=== PATIENT | female | born 1990 | race African-American/Black ===

== ENCOUNTER 2016-07-31 17:02 | Emergency (ER) | payer MEDICARE, MEDICAID ==
[~2016-07-31 17:02] MED LIST: PRENATAL COMPLE1 TAB PO
[2016-07-31 17:31] LABS: BASOPHILS 0.2 % (0-2); EOSINOPHILS 1.2 % (0-7); HEMATOCRIT 41.6 % (36.0-48.0); HEMOGLOBIN 14.6 g/dL (12-16); IMMATURE GRANULOCYTES 0.3 % (0-5); LYMPHOCYTES 31.5 % (15-50); MCH 32.9 pg (26.0-34.0); MCHC 35.1 g/dL (31.0-37.0); MCV 93.7 fL (80.0-100.0); MEAN PLATELET VOLUME 9.3 fL (7.4-10.4); MONOCYTES 8.9 % (2-11); NEUTROPHILS 57.9 % (40-80); PLATELET COUNT 244 10x3/uL (130-400); RBC 4.44 10x6/uL (4.00-5.40); RDW 12.6 % (11.5-14.5); WBC 9.6 10x3/uL (4.8-10.8)
[2016-07-31 17:55] LABS: ALBUMIN 3.6 g/dL (3.4-5.0); ALKALINE PHOSPHATASE 103 U/L (46-116); ALT (SGPT) 27 U/L (10-68); CALC OSMOLALITY 278 mosm/kg (275-300); CARBON DIOXIDE 25.9 mmol/L (21.0-32.0); CHLORIDE - SERUM 104 mmol/L (98-107); CREATININE - SERUM 0.9 mg/dL (0.6-1.3); HCG SERUM NEGATIVE (NEGATIVE); POTASSIUM - SERUM 3.7 mmol/L (3.5-5.1); PROTEIN - SERUM 7.3 g/dL (6.4-8.2); SODIUM 140 mmol/L (136-145); UREA NITROGEN 11 mg/dL (7-18); eGFR NON AFRICAN AMERICAN 80 mL/min (90-120)
[2016-07-31 17:56] LABS: GLUCOSE 114 mg/dL (74-106)
[2016-07-31 18:03] LABS: APPEARANCE CLEAR (CLEAR); BILIRUBIN NEGATIVE (NEGATIVE); COLOR YELLOW (YELLOW); GLUCOSE NEGATIVE (NEGATIVE); KETONE NEGATIVE (NEGATIVE); LEUKOCYTE ESTERASE TRACE (NEGATIVE); NITRITE NEGATIVE (NEGATIVE); PROTEIN TRACE mg/dL (NEGATIVE); UROBILINOGEN NORMAL (NORMAL)
[2016-07-31 18:05] LABS: BACTERIA FEW /hpf (NONE SEEN); MUCUS <1+ /lpf (NONE SEEN); RED CELLS - URINE 0-5 /hpf (0-5); WHITE CELLS - URINE 0-5 /hpf (0-5)
[2016-07-31 18:08] LABS: UDS - AMPHET POSITIVE QUAL (NEGATIVE); UDS - BARB NEGATIVE QUAL (NEGATIVE); UDS - BENZO POSITIVE QUAL (NEGATIVE); UDS - COCAINE NEGATIVE QUAL (NEGATIVE); UDS - METH NEGATIVE QUAL (NEGATIVE); UDS - OPIATE NEGATIVE QUAL (NEGATIVE); UDS - PCP NEGATIVE QUAL (NEGATIVE); UDS - THC POSITIVE QUAL (NEGATIVE)
== END 2016-07-31 20:35 | disposition short-term general hospital (02) ==
LOC: D.ER 17:02
PROVIDERS: Emergency Medicine Emergency Medical Services
DX: F31.60 Bipolar disorder, current episode mixed, unspecified (principal); F19.10 Other psychoactive substance abuse, uncomplicated; F17.200 Nicotine dependence, unspecified, uncomplicated

== ENCOUNTER 2017-01-06 19:23 | Emergency (ER) | payer MEDICARE, MEDICAID ==
[2017-01-12 22:38] VITALS: BMI 23.4
== END 2017-01-06 20:57 | disposition home or self-care (01) ==
LOC: D.ER 19:23
DX: H60.12 Cellulitis of left external ear (principal); K21.9 Gastro-esophageal reflux disease without esophagitis

== ENCOUNTER 2017-01-12 13:07 | Day surgery (SDC) | payer MEDICARE, MEDICAID ==
[2017-01-12] VITALS (7 sets, daily range): BP systolic 102–137; BP diastolic 54–76; BMI 23.4
[2017-01-12 14:13] LABS: APPEARANCE CLEAR (CLEAR); BILIRUBIN NEGATIVE (NEGATIVE); COLOR YELLOW (YELLOW); GLUCOSE NEGATIVE (NEGATIVE); KETONE NEGATIVE (NEGATIVE); NITRITE NEGATIVE (NEGATIVE); PROTEIN NEGATIVE (NEGATIVE); UROBILINOGEN NORMAL (NORMAL)
[2017-01-12 14:14] LABS: BACTERIA MANY /hpf (NONE SEEN); MUCUS <1+ /lpf (NONE SEEN); RED CELLS - URINE 0-5 /hpf (0-5); WHITE CELLS - URINE RARE /hpf (0-5)
[2017-01-12 15:05] LABS: BASOPHILS 0.4 % (0-2); EOSINOPHILS 0.9 % (0-7); HEMATOCRIT 39.4 % (36.0-48.0); HEMOGLOBIN 13.5 g/dL (12-16); IMMATURE GRANULOCYTES 0.6 % (0-5); LYMPHOCYTES 35.6 % (15-50); MCH 32.8 pg (26.0-34.0); MCHC 34.3 g/dL (31.0-37.0); MCV 95.9 fL (80.0-100.0); MONOCYTES 11.4 % (2-11); NEUTROPHILS 51.1 % (40-80); PLATELET COUNT 293 10x3/uL (130-400); RBC 4.11 10x6/uL (4.00-5.40); RDW 12.8 % (11.5-14.5); WBC 11.2 10x3/uL (4.8-10.8)
[2017-01-12 15:10] LABS: HCG SERUM POSITIVE (NEGATIVE)
[2017-01-12 15:18] LABS: ALBUMIN 3.4 g/dL (3.4-5.0); ALKALINE PHOSPHATASE 87 U/L (46-116); ALT (SGPT) 31 U/L (10-68); BILIRUBIN - TOTAL 0.18 mg/dL (0.2-1.3); CALC OSMOLALITY 274 mosm/kg (275-300); CALCIUM 8.9 mg/dL (8.5-10.1); CARBON DIOXIDE 24.9 mmol/L (21.0-32.0); CHLORIDE - SERUM 104 mmol/L (98-107); CREATININE - SERUM 0.7 mg/dL (0.6-1.3); GLUCOSE 71 mg/dL (74-106); POTASSIUM - SERUM 4.3 mmol/L (3.5-5.1); PROTEIN - SERUM 7.4 g/dL (6.4-8.2); SODIUM 138 mmol/L (136-145); UREA NITROGEN 14 mg/dL (7-18); eGFR NON AFRICAN AMERICAN > 90 mL/min (90-120)
--- NOTE | 2017-01-12 20:14 | HP ---
PATIENT: LEON SALINAS MEDICAL RECORD: [id number] ACCOUNT: [id number] LOCATION:[facility] : 89 ADMISSION DATE: 01/12/17 HISTORY AND PHYSICAL EXAMINATION HISTORY OF PRESENT ILLNESS: This patient is a 26-year-old 2, para 1 female who presents to the Emergency Room with lower abdominal pain, especially in left lower quadrant and positive test. Ultrasound reveals a mass in the left adnexa and fluid in the abdomen consistent with ectopic . HCG level is 279. Her last known menstrual period was in November. DRUG ALLERGIES: PENICILLIN. CURRENT MEDICATIONS: None. MEDICAL PROBLEMS: Denies heart disease, diabetes, hypertension, kidney problems, thyroid problems. Does have a history of bipolar disorder and is currently on no medications for that. PREVIOUS SURGERIES: section. Her child is approximately 1-year-old. FAMILY HISTORY: Noncontributory. SOCIAL HISTORY: The patient smokes approximately half pack a day and has stopped since she found out she is . PHYSICAL EXAMINATION: VITAL SIGNS: Stable. HEENT: Unremarkable. LUNGS: Clear. HEART: Regular rate and rhythm. She does have a grade 2 murmur. ABDOMEN: Soft, without distention, tender throughout with guarding. PELVIC: Deferred for anesthesia. EXTREMITIES: No cyanosis, clubbing, or edema. NEUROLOGIC: Grossly intact. IMPRESSION: Probable ectopic and acute onset of abdominal pain and positive test without an intrauterine gestation. PLAN: I have discussed with the patient the need for laparoscopic evaluation with removal of ectopic is identified, discussed that more extensive surgery might be needed to stop bleeding or if complications occur. I answered all her questions. TRANSINT:[id number] Voice Confirmation ID: [id number] DOCUMENT ID: [id number] HISTORY AND PHYSICAL [id number] LEON SALINAS MICHELLE BRASHER MD at 2014 CC: [id number] DICTATION DATE: 01/12/171837 FORM BUILDER HELPER: 01/12/172002 [facility] [address] [place] [address]
--- NOTE | 2017-01-12 21:53 | NUR ---
REC'D PT TO ROOM 1257 FROM PACU ON STRETCHER WITH SECURITY COMPLIANCE SPECIALIST. BEDSIDE REPORT REC'D FROM Henrry SAAB RN. PT AWAKE, ALERT, AND ORIENTED X3, HOWEVER REPORTS THAT SHE "FEELS HIGH." PT GIGGLING AND LAUGHING AT THIS TIME. REPORTS ABD CRAMPING. PT TRANSFERRED TO BED WITH MINIMAL ASSIST. PER SECURITY COMPLIANCE SPECIALIST PT'S MOTHER WAS WITH HER AND WILL RETURN TO THE HOSPITAL AT A LATER TIME. VSS. NO BLEEDING NOTED AT THIS TIME. STERISTRIPS INTACT TO ABD. ABD SOFT AND NONDISTENDED. BREATH SOUNDS CLEAR AND EQUAL BILATERALLY, RESPIRATIONS REGULAR AND UNLABORED. PT ORIENTED TO ROOM, BED RAILS, CL USE, AND PHONE. ORDERS REVIEWED. PLAN OF CARE DISCUSSED WITH PT. DENIES QUESTIONS AT THIS TIME. BED IN LOW POSITION AT THIS TIME. UPPER SIDE RAILS RAISED X2. CL AND PHONE WITHIN REACH.
--- NOTE | 2017-01-12 22:17 | NUR ---
RN BACK TO BEDSIDE. SCHEDULED TORADOL GIVEN PER ORDER. PAIN 3/10 ABD CRAMPING AND SORENESS. D5LR INITIATED VIA PUMP AT 125 MLS/HR PER ORDER. MEDS DISCUSSED WITH PT, VERBALIZES UNDERSTANDING AND DENIES QUESTIONS. RN REMAINS AT BEDSIDE AT THIS TIME.
--- NOTE | 2017-01-12 22:38 | NUR ---
PT TALKING TO MOTHER ON PHONE. EATING ICE CHIPS. RN REMAINS AT BEDSIDE.
--- NOTE | 2017-01-12 22:50 | NUR ---
PAIN REASSESSMENT COMPLETED. DENIES PAIN AT THIS TIME. ABD REMAINS SOFT AND NONDISTENDED. DIME SIZED AREA BRB NOTED TO PERIPAD. RN REMAINS AT BEDSIDE WITH PT. PT CONTINUES TO TALK, GIGGLE AT TIMES, DIFFICULT TO FOLLOW D/T CHANGING TOPICS OF CONVERSTATION FREQUENTLY.
--- NOTE | 2017-01-12 23:06 | NUR ---
PT'S MOTHER BACK TO BEDSIDE. PLAN OF CARE REVIEWED WITH PT'S MOTHER PER PT'S REQUEST. DENIES QUESTIONS.
[2017-01-13 00:02] VITALS: BP 106/69
--- NOTE | 2017-01-13 00:02 | NUR ---
RN TO BEDSIDE FOR ROUNDS. PT IN SEMI FOWLERS POSITION CONVERSING WITH HER MOTHER. ICE WATER AND JELLO GIVEN. VSS. BLEEDING REMAINS SCANT. ABD REMAINS SOFT AND NONDISTENDED. PT DENIES PAIN AND NEED TO VOID. REINFORCED INSTRUCTION ON USE OF CL FOR ASSISTANCE OOB, VERBALIZES UNDERSTANDING. BED IN LOW POSITION WITH UPPER SIDE RAILS RAISED X2. CL AND PHONE WITHIN REACH.
[2017-01-13 01:12] VITALS: BP 129/65
--- NOTE | 2017-01-13 01:12 | NUR ---
RN TO BEDSIDE FOR ROUNDS. VSS. SCANT AMT BLEEDING PRESENT. ABD REMAINS NONDISTENDED. PT DENIES PAIN. UP TO VOID, VOIDS 100 MLS CLEAR LIGHT YELLOW URINE IN HAT. PERICARE DONE PER PT. DISPOSABLE PANTIES AND PERIPAD PROVIDED. PT CHANGED INTO HER OWN CLOTHES. STEADY GAIT NOTED. SODA GIVEN PER REQUEST. PT'S MOM REMAINS IN ROOM RESTING ON COUCH. BED IN LOW POSITION WITH UPPER SIDE RAILS RAISED X2. CL AND PHONE WITHIN REACH. REINFORCED USE OF CL PRN FOR ASSISTANCE. WILL CONT TO MONITOR AND ASSIST PRN.
[2017-01-13 02:23] VITALS: BP 106/54
--- NOTE | 2017-01-13 02:23 | NUR ---
RN TO BEDSIDE FOR ROUNDS. PT TALKING ON CELL PHONE. DENIES PAIN. VSS. DENIES NEEDS. REFUSES ICE PACK AT THIS TIME. PT'S MOTHER CONTINUES TO REST ON COUCH AT BEDSIDE. BED IN LOW POSITION WITH UPPER SIDE RAILS RAISED X2. CL AND PHONE WITHIN REACH. WILL CONT TO MONITOR AND ASSIST PRN.
[2017-01-13 03:18] VITALS: BP 117/54
--- NOTE | 2017-01-13 03:18 | NUR ---
RN TO BEDSIDE FOR ROUNDS. PT SITTING UP IN BED TALKING ON CELL PHONE. DENIES PAIN AND NEEDS AT THIS TIME. STATES THAT SHE VOIDED AGAIN WITHOUT DIFFICULTY BUT DID NOT MEASURE IT IN HAT. STATES THAT SHE HAS HAD NO MORE BLEEDING. ABD NONDISTENDED AND SOFT. BED IN LOW POSITION WITH UPPER SIDE RAILS RAISED X2. CL AND PHONE WITHIN REACH. CONTINUES TO REFUSE ICE PACK. WILL CONT TO MONITOR AND ASSIST PRN.
--- NOTE | 2017-01-13 04:27 | NUR ---
RN TO BEDSIDE FOR ROUNDS. PT CONTINUES TO TALKE ON CELL PHONE. SCANT BLEEDING NOTED. ABD REMAINS SOFT AND NONDISTENDED. REPORTS PAIN 2/10, ABD SORENESS AND OCCASIONAL CRAMPING. TORADOL GIVEN. ICE WATER GIVEN PER REQUEST. DENIES ADDITIONAL NEEDS. BED IN LOW POSITION WITH UPPER SIDE RAILS RAISED X2. CL AND PHONE WITHIN REACH. WILL CONT TO MONITOR AND ASSIST PRN.
--- NOTE | 2017-01-13 05:15 | NUR ---
ASSISTED PATIENT UP TO BATHROOM. PT VOIDED WITHOUT COMPLICATIONS. NO OTHER NEEDS IDENTIFIED, PT BACK TO BED.
--- NOTE | 2017-01-13 06:09 | NUR ---
IV FLUIDS COMPLETED AT THIS TIME. PT IV SALINE LOCKED.
[2017-01-13 08:30] VITALS: BP 102/84
--- NOTE | 2017-01-13 08:30 | NUR ---
ENTERED ROOM. PT HAS BEEN SEEN PER Vlad MORALES RN THIS AM. PT DENIES PAIN IS UP AND WALKING AROUND ROOM. PT STATES SHE IS READY AND HAS BEEN READY TO GO HOME. PT STATES SHE PULLED OUT HER SALINE LOCK ALREADY BECAUSE " I HEARD THEY WERE NOT SUPPOSE TO BE IN VERY LONG BECAUSE OF INFECTION" IV SITE APPEARANCE WNLJed WARD IS ON SITE. PT STATES THAT SHE WANTS TO GO SEE HER BOYFRIEND AT NURSING HOME AT 1100 AND WANTS TO BE DISCHARGED.
--- NOTE | 2017-01-13 09:11 | NUR ---
REPORT TO DR BRASHER ABOUT PT WANTING TO BE DISCHARGED- NEW ORDERS RECEIVED.
[2017-01-13] MEDS ORDERED: MEPERIDINE HCL50 MG PO (09:18)
[2017-01-13] MEDS ORDERED: IBUPROFEN800 MG PO (09:19)
--- NOTE | 2017-01-13 09:30 | NUR ---
RHOGAM IM GIVEN PER ORDER DR BRASHER.
--- NOTE | 2017-01-13 10:00 | NUR ---
DISCHARGE INST VERBAL AND WRITTEN GIVEN. PRESCRIPTIONS GIVEN- DEMEROL AND MOTRIN, PT MED REC AND DURG DATA INFO GIVEN. PT HEALTH SUMMARY GIVEN. SEE OTHER PT INST SIGNITURE PAGE. PT DENIES QUESTIONS.
--- NOTE | 2017-01-13 10:13 | NUR ---
PT AMBULATORY OFF UNIT PER REQUEST- PT MOTHER WITH HER. DISCHARGE TO HOME.
== END 2017-01-13 10:13 | disposition home or self-care (01) ==
LOC: D.ER 13:07 → D.OPS 13:07 → EDSTATUS 19:00 → D.LD 20:21 → D.OPS 01-13 10:13
PROVIDERS: Emergency Medicine
DX: O00.102 Left tubal pregnancy without intrauterine pregnancy (principal); F17.200 Nicotine dependence, unspecified, uncomplicated

== ENCOUNTER 2017-03-04 13:01 | Emergency (ER) | payer MEDICARE ==
[2017-01-12 22:38] VITALS: BMI 23.4
[~2017-03-04 13:01] MED LIST changes: +IBUPROFEN800 MG PO; +MEPERIDINE HCL50 MG PO
[2017-03-04 13:45] LABS: BASOPHILS 0.4 % (0-2); EOSINOPHILS 0.4 % (0-7); HEMATOCRIT 40.6 % (36.0-48.0); HEMOGLOBIN 14.1 g/dL (12-16); IMMATURE GRANULOCYTES 0.4 % (0-5); LYMPHOCYTES 19.8 % (15-50); MCH 32.9 pg (26.0-34.0); MCHC 34.7 g/dL (31.0-37.0); MCV 94.6 fL (80.0-100.0); MEAN PLATELET VOLUME 9.3 fL (7.4-10.4); MONOCYTES 10.2 % (2-11); NEUTROPHILS 68.8 % (40-80); RBC 4.29 10x6/uL (4.00-5.40); RDW 12.5 % (11.5-14.5); WBC 8.4 10x3/uL (4.8-10.8)
[2017-03-04 13:46] LABS: PLATELET COUNT 227 10x3/uL (130-400)
[2017-03-04 13:53] LABS: APPEARANCE CLOUDY (CLEAR); BILIRUBIN NEGATIVE (NEGATIVE); COLOR YELLOW (YELLOW); GLUCOSE NEGATIVE (NEGATIVE); KETONE NEGATIVE (NEGATIVE); NITRITE NEGATIVE (NEGATIVE); PROTEIN 3+ mg/dL (NEGATIVE); UROBILINOGEN NORMAL (NORMAL)
[2017-03-04 13:55] LABS: AMORPHOUS SEDIMENT >1+ /lpf (NONE SEEN); BACTERIA MODERATE /hpf (NONE SEEN); GRANULAR CAST 0-5 /lpf (NONE SEEN); HYALINE CAST 0-5 /lpf (NONE SEEN); RED CELLS - URINE 0-5 /hpf (0-5); WHITE CELLS - URINE 0-5 /hpf (0-5)
[2017-03-04 14:10] LABS: ALBUMIN 3.9 g/dL (3.4-5.0); ANION GAP 17.9 mmol/L (8-16); BILIRUBIN - TOTAL 0.23 mg/dL (0.2-1.3); CALCIUM 9.1 mg/dL (8.5-10.1); CARBON DIOXIDE 22.8 mmol/L (21.0-32.0); CREATININE - SERUM 1.3 mg/dL (0.6-1.3); POTASSIUM - SERUM 3.7 mmol/L (3.5-5.1); PROTEIN - SERUM 7.8 g/dL (6.4-8.2)
[2017-03-04 14:19] LABS: HCG URINE NEGATIVE (NEGATIVE)
[2017-03-04 14:47] LABS: UDS - AMPHET NEGATIVE QUAL (NEGATIVE); UDS - BARB NEGATIVE QUAL (NEGATIVE); UDS - BENZO POSITIVE QUAL (NEGATIVE); UDS - COCAINE POSITIVE QUAL (NEGATIVE); UDS - OPIATE NEGATIVE QUAL (NEGATIVE); UDS - PCP NEGATIVE QUAL (NEGATIVE); UDS - THC POSITIVE QUAL (NEGATIVE)
== END 2017-03-04 18:55 | disposition home or self-care (01) ==
LOC: D.ER 13:01
PROVIDERS: Emergency Medicine
DX: F10.129 Alcohol abuse with intoxication, unspecified (principal)

== ENCOUNTER 2017-04-20 18:01 | Emergency (ER) | payer MEDICARE ==
[2017-01-12 22:38] VITALS: BMI 23.4
[2017-04-20 18:34] LABS: APPEARANCE HAZY (CLEAR); BILIRUBIN NEGATIVE (NEGATIVE); COLOR YELLOW (YELLOW); GLUCOSE NEGATIVE (NEGATIVE); KETONE NEGATIVE (NEGATIVE); NITRITE NEGATIVE (NEGATIVE); PROTEIN NEGATIVE (NEGATIVE); UROBILINOGEN NORMAL (NORMAL)
[2017-04-20 18:36] LABS: RED CELLS - URINE 0-5 /hpf (0-5)
[2017-04-20 18:37] LABS: BACTERIA MODERATE /hpf (NONE SEEN)
== END 2017-04-20 20:46 | disposition home or self-care (01) ==
LOC: D.ER 18:01
PROVIDERS: Emergency Medicine
DX: A59.9 Trichomoniasis, unspecified (principal); Z20.2 Contact with and (suspected) exposure to infections with a predominantly sexual mode of transmission

== ENCOUNTER 2017-06-17 17:22 | Emergency (ER) | payer MEDICARE ==
[2017-01-12 22:38] VITALS: BMI 23.4
== END 2017-06-17 18:35 ==
LOC: D.ER 17:22
DX: S61.511A Laceration without foreign body of right wrist, initial encounter (principal); Y04.2XXA Assault by strike against or bumped into by another person, initial encounter; Y93.89 Activity, other specified; Y92.019 Unspecified place in single-family (private) house as the place of occurrence of the external cause; Z86.59 Personal history of other mental and behavioral disorders

== ENCOUNTER 2018-04-05 11:58 | Emergency (ER) | payer MEDICARE ==
[~2018-04-05] VITALS: Ht 167.6 cm; Wt 61.4 kg
[2018-04-05 12:23] VITALS: BP 143/68; Ht 167.6 cm; Wt 61.4 kg
[2018-04-05 12:57] LABS: BASOPHILS 0.4 % (0-2); EOSINOPHILS 2.1 % (0-7); HEMATOCRIT 40.3 % (36.0-48.0); HEMOGLOBIN 13.7 g/dL (12-16); IMMATURE GRANULOCYTES 0.4 % (0-5); LYMPHOCYTES 27.1 % (15-50); MCH 32.6 pg (26.0-34.0); MEAN PLATELET VOLUME 9.1 fL (7.4-10.4); MONOCYTES 10.5 % (2-11); NEUTROPHILS 59.5 % (40-80); PLATELET COUNT 272 10x3/uL (130-400); RDW 12.8 % (11.5-14.5); WBC 9.1 10x3/uL (4.8-10.8)
[2018-04-05 13:01] LABS: APPEARANCE CLEAR (CLEAR); BILIRUBIN NEGATIVE (NEGATIVE); COLOR YELLOW (YELLOW); GLUCOSE NEGATIVE (NEGATIVE); KETONE NEGATIVE (NEGATIVE); NITRITE NEGATIVE (NEGATIVE); PROTEIN NEGATIVE (NEGATIVE); UROBILINOGEN NORMAL (NORMAL)
[2018-04-05 13:11] LABS: EPITHELIAL CELLS OCC /hpf (0-5); RED CELLS - URINE RARE /hpf (0-5); WHITE CELLS - URINE RARE /hpf (0-5)
[2018-04-05 13:12] LABS: BACTERIA FEW /hpf (NONE SEEN); YEAST RARE /hpf (NONE SEEN)
[2018-04-05 13:17] LABS: ALBUMIN 3.5 g/dL (3.4-5.0); ALKALINE PHOSPHATASE 84 U/L (46-116); ALT (SGPT) 25 U/L (10-68); BILIRUBIN - TOTAL 0.21 mg/dL (0.2-1.3); CALC OSMOLALITY 278 mosm/kg (275-300); CARBON DIOXIDE 29.4 mmol/L (21.0-32.0); CHLORIDE - SERUM 103 mmol/L (98-107); CREATININE - SERUM 0.8 mg/dL (0.6-1.3); GLUCOSE 82 mg/dL (74-106); POTASSIUM - SERUM 4.2 mmol/L (3.5-5.1); PROTEIN - SERUM 7.4 g/dL (6.4-8.2); SODIUM 140 mmol/L (136-145); UREA NITROGEN 16 mg/dL (7-18); eGFR NON AFRICAN AMERICAN 90 mL/min (90-120)
[2018-04-05 13:23] LABS: HCG - QUANTITATIVE (MATERNAL) 690 mIU/mL
== END 2018-04-05 18:37 | disposition home or self-care (01) ==
LOC: D.ER 11:58
PROVIDERS: Family Medicine
DX: O26.851 Spotting complicating pregnancy, first trimester (principal); Z3A.01 Less than 8 weeks gestation of pregnancy; R10.9 Unspecified abdominal pain

== ENCOUNTER 2018-08-24 17:06 | Emergency (ER) | payer MEDICARE ==
[~2018-08-24] VITALS: Ht 167.6 cm; Wt 61.4 kg
[2018-08-24 17:10] VITALS: Ht 167.6 cm; Wt 61.4 kg
[2018-08-24 18:04] LABS: APPEARANCE CLEAR (CLEAR); BILIRUBIN NEGATIVE (NEGATIVE); COLOR STRAW (YELLOW); GLUCOSE 100 mg/dL (NEGATIVE); KETONE SMALL mg/dL (NEGATIVE); NITRITE NEGATIVE (NEGATIVE); PROTEIN NEGATIVE (NEGATIVE); UROBILINOGEN NORMAL (NORMAL)
[2018-08-24 18:05] LABS: HCG URINE NEGATIVE (NEGATIVE)
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
--- NOTE | 2018-08-24 18:07 | NUR ---
The patient is not suicidal, but did provide her a copy of the suicide prevention resources so that if she ever feels suicidal or has a friend that is suicidal they will have the resources to refer to.
[2018-08-24 18:18] LABS: UDS - AMPHET POSITIVE QUAL (NEGATIVE); UDS - BARB NEGATIVE QUAL (NEGATIVE); UDS - BENZO NEGATIVE QUAL (NEGATIVE); UDS - COCAINE NEGATIVE QUAL (NEGATIVE); UDS - OPIATE NEGATIVE QUAL (NEGATIVE); UDS - PCP NEGATIVE QUAL (NEGATIVE); UDS - THC POSITIVE QUAL (NEGATIVE)
[2018-08-24 18:39] LABS: BASOPHILS 0.2 % (0-2); EOSINOPHILS 0.3 % (0-7); HEMATOCRIT 38.2 % (36.0-48.0); HEMOGLOBIN 13.6 g/dL (12-16); IMMATURE GRANULOCYTES 0.3 % (0-5); LYMPHOCYTES 44.1 % (15-50); MCHC 35.6 g/dL (31.0-37.0); MCV 89.9 fL (80.0-100.0); MEAN PLATELET VOLUME 9.2 fL (7.4-10.4); MONOCYTES 8.5 % (2-11); NEUTROPHILS 46.6 % (40-80); PLATELET COUNT 235 10x3/uL (130-400); RBC 4.25 10x6/uL (4.00-5.40); RDW 13.3 % (11.5-14.5); WBC 10.7 10x3/uL (4.8-10.8)
[2018-08-24 18:57] LABS: ALBUMIN 3.9 g/dL (3.4-5.0); ALKALINE PHOSPHATASE 78 U/L (46-116); ALT (SGPT) 31 U/L (10-68); BILIRUBIN - TOTAL 0.32 mg/dL (0.2-1.3); CALC OSMOLALITY 280 mosm/kg (275-300); CALCIUM 8.6 mg/dL (8.5-10.1); CARBON DIOXIDE 21.2 mmol/L (21.0-32.0); CHLORIDE - SERUM 105 mmol/L (98-107); CREATININE - SERUM 0.8 mg/dL (0.6-1.3); GLUCOSE 110 mg/dL (74-106); POTASSIUM - SERUM 3.4 mmol/L (3.5-5.1); PROTEIN - SERUM 7.5 g/dL (6.4-8.2); SODIUM 141 mmol/L (136-145); UREA NITROGEN 10 mg/dL (7-18); eGFR NON AFRICAN AMERICAN 90 mL/min (90-120)
[2018-08-24 18:59] LABS: MAGNESIUM - SERUM 1.9 mg/dL (1.8-2.4)
[2018-08-24 19:55] VITALS: BP 132/70
== END 2018-08-24 19:55 | disposition home or self-care (01) ==
LOC: D.ER 17:06
PROVIDERS: Emergency Medicine
DX: F10.129 Alcohol abuse with intoxication, unspecified (principal)

== ENCOUNTER 2019-03-20 19:12 | Emergency (ER) | payer MEDICARE ==
[~2019-03-20] VITALS: Ht 167.6 cm; Wt 55.5 kg
[2019-03-20 19:17] VITALS: Ht 167.6 cm; Wt 55.5 kg
[2019-03-20 19:51] LABS: APPEARANCE CLEAR (CLEAR); BILIRUBIN NEGATIVE (NEGATIVE); COLOR YELLOW (YELLOW); GLUCOSE NEGATIVE (NEGATIVE); KETONE NEGATIVE (NEGATIVE); NITRITE NEGATIVE (NEGATIVE); PROTEIN NEGATIVE (NEGATIVE); SPECIFIC GRAVITY 1.015 (1.005-1.020); UROBILINOGEN NORMAL (NORMAL)
[2019-03-20 19:54] LABS: HCG URINE NEGATIVE (NEGATIVE)
[2019-03-20 21:57] VITALS: BP 114/64
== END 2019-03-20 21:58 | disposition home or self-care (01) ==
LOC: D.ER 19:12
PROVIDERS: Family Medicine
DX: R10.2 Pelvic and perineal pain (principal); N93.9 Abnormal uterine and vaginal bleeding, unspecified